=== PATIENT | male | born 1955 | race Caucasian/White ===

== ENCOUNTER 2024-03-30 15:13 | Outpatient (AMB) | payer MEDICARE, SELFPAY ==
--- NOTE | 2024-03-30 15:11 | HO.NEPHOV_ITS ---
Vital Signs 03/30/24 15:13 Height 5 ft 10 in Weight 234 lb BMI 33.6 BP 110/68 Blood Pressure Location Rt brachial Position Sitting Pulse 95 Pulse Source Pulse Oximeter Pulse Oximetry (%) 96 Oxygen Delivery Method Room Air Intake Visit Reasons: CKD/ Conf Supervisory Investigative Specialist Required: No Accompanied by: Spouse Allergies semaglutide [From Ozempic] Allergy (Unknown, Verified 03/30/24 15:16) Nausea and Vomiting Medication List - Last Reconciled 03/30/24 by Morgan Garcia MD aspirin 81 mg PO .Everyother Day clonazepam 0.5 mg PO DAILY PRN insulin glargine (Lantus Solostar U-100 Insulin) 30 units subcut lansoprazole 30 mg PO DAILY lisinopril 20 mg PO DAILY multivitamin 1 tab PO DAILY pioglitazone 30 mg PO DAILY rosuvastatin 40 mg PO DAILY tirzepatide (Mounjaro) 5 mg subcut QWEEK HPI Comments Details: Daniel is a pleasant 68-year-old man referred for CKD. He has had diabetes mellitus for more than 20 years but blood sugar has been well controlled. Until recently he was on metformin which has been discontinued. He has been on Mounjaro for the last 6 months. He has lost about 15 lb. He has been on lisinopril 20 mg a day for last several years. Blood pressure has been well controlled. He denies any hypotensive episodes. He has no urinary symptoms. No polyuria polydipsia no hematuria. No leg edema no shortness of breath no fever no cough. He does not smoke or consume alcohol at present. The goals regularly. Occasionally takes ibuprofen 800 mg for aches. 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 Obesity due to excess calories Hyperlipidemia Hypertension GERD (gastroesophageal reflux disease) Diabetes Family History (Updated 03/30/24 @ 15:16 by ELSA Paula) Mother Hypertension Review of Systems Const Denies fever(s) and Denies weight loss Card Denies chest pain Resp Denies cough and Denies hemoptysis GI Denies abdominal pain, Denies diarrhea and Denies nausea Musc Denies back pain Neuro Denies focal weakness Physical Exam Vital Signs: Last Vital Signs Pulse 95 03/30/24 15:13 BP 110/68 03/30/24 15:13 Pulse Ox 96 03/30/24 15:13 Oxygen Delivery Method Room Air 03/30/24 15:13 BMI result Body Mass Index 33.6 Comfortable Neck supple no JVD. Lungs entry equal no rales. Heart S1-S2 heard no gallop or rub. Abdomen soft nontender. Neuro alert awake oriented. No asterixis. Extremities no edema. Results Reviewed Results Reviewed: 05/09/2023 serum creatinine 1.43 12/08/2023 creatinine 1.43. 02/07/2024 serum creatinine 1.73. Nephrology Results: No Data to Display Assessment & Plan Assessment & Plan (1) CKD (chronic kidney disease): Code(s): N18.9 - Chronic kidney disease, unspecified Category: Medical Plan Anupam has CKD in a setting of longstanding hypertension diabetes mellitus. I suspect he has a component of acute kidney injury due to hypoperfusion. With mounjaro he has lost some weight and probably has hypoperfusion from the use of DANILO inhibitor. Occasional use of ibuprofen could have contributed as well. Urinalysis bland. No significant proteinuria. No evidence of any active glomerular nephritis or interstitial disease. Other less likely possibilities would include obstructive uropathy. Recommendation Decrease lisinopril from 20 mg down to 10 mg a day. Stay on low-sodium diet Increase p.o. fluid intake. Check renal ultrasonogram. Recheck serum creatinine in the next few weeks. Further workup will be based on the outcome of these investigations. Orders: Orders Basic Metabolic Panel 5 Weeks N18.9 - Chronic kidney disease, unspecified Basic Metabolic Panel Today N18.9 - Chronic kidney disease, unspecified US renal BI Today N18.9 - Chronic kidney disease, unspecified Medications: New lisinopril 10 mg PO DAILY 30 tabs 1RF Coding Level of Care Code New Pt Level 4 (67526) Diagnoses CKD (chronic kidney disease) N18.9
[2024-03-30 15:13] VITALS: BP 110/68; PULSE 95; O2SAT 96; BMI 33.6
--- OUTSIDE RECORDS SUMMARY | 2024-03-31 03:01 | XMS_ITS ---
Author Name [facility] Organization Unknown History of Medication Use Medication Directions Dispensed Refills Start Date End Date Stat pioglitazone (ACTOS) 45 MG tablet Take 45 mg by mouth daily. 03/21/2023 active Metformin Hydrochloride 500mg Tablet 11/29/2022 active diazepam (Valium) 2 MG tablet 1-2 q8h prn 03/21/2023 active insulin glargine (LANtus SOLOSTAR) 100 units/mL pen injection Inject under the skin. 03/21/2023 active Continuous Blood Gluc Sensor (FreeStyle Hali 14 Day Sensor) Misc 1 DEVICE BY DOES NOT APPLY ROUTE EVERY 14 (FOURTEEN) DAYS. 03/21/2023 active insulin NPH (HumuLIN N,NovoLIN N) 100 units/mL injection Inject under the skin 2 (two) times a day. 03/21/2023 active meclizine (ANTIVERT) 25 MG tablet Take 25 mg by mouth 3 (three) times a day as needed. 03/21/2023 aborted Ozempic, 1 MG/DOSE, 4 MG/3ML prefilled pen injection INJECT 1 MG UNDER THE SKIN ONCE A WEEK. 03/21/2023 active metFORMIN (GLUCOPHAGE) 1000 MG tablet Take 1,000 mg by mouth 2 (two) times a day with meals. 03/21/2023 active predniSONE (DELTASONE) 20 MG tablet Take 2 tablets (40 mg total) by mouth daily. With food. 03/21/2023 active Lantus SoloStar 100units/mL Pre-Filled Pen Solution for Injection 11/29/2022 active meclizine (ANTIVERT) 25 MG tablet Take 25 mg by mouth 3 (three) times a day as needed. 03/21/2023 aborted Valacyclovir Hydrochloride 1g Tablet 11/29/2022 active clonazePAM (KlonoPIN) 0.5 MG tablet Take 0.5 mg by mouth 2 (two) times a day. 03/21/2023 aborted Rosuvastatin Calcium 40mg Tablet 11/29/2022 active buPROPion (WELLBUTRIN SR) 150 MG 12 hr tablet TAKE 1 TABLET BY MOUTH EVERY MORNING FOR 4 WEEKS THEN INCREASE TO TWICE A DAY 03/21/2023 aborted rosuvastatin (CRESTOR) 20 MG tablet Take 20 mg by mouth daily. 03/21/2023 active Pioglitazone Hydrochloride 30mg Tablet 11/29/2022 active lisinopril (PRINIVIL,ZeSTRIL) 20 MG tablet Take 20 mg by mouth daily. 03/21/2023 active lansoprazole (PREVACID) 30 MG capsule TAKE ONE CAPSULE BY MOUTH EVERY DAY 1/2 HOUR BEFORE MEALS 03/21/2023 active insulin lispro (HumaLOG KWIKPEN) 100 UNIT/ML prefilled pen injection 03/21/2023 active metFORMIN (GLUCOPHAGE-XR) 500 MG 24 hr tablet TAKE 2 TABLETS (1,000 MG TOTAL) BY MOUTH EVERY MORNING WITH BREAKFAST. 03/21/2023 aborted valACYclovir (VALTREX) 1000 MG tablet TAKE 1 TABLET BY MOUTH EVERY DAY 03/21/2023 active Lansoprazole 30mg Delayed-Release Orally Disintegrating Tablet 11/29/2022 act rafa quinapril (ACCUPRIL) 20 MG tablet Take 20 mg by mouth daily. 03/21/2023 active Problems Problem Status Onset Date Problem Type Date of Resolution Source Neuralgia and neuritis active 2022-11-26 EncounterDiagnosisAct ENS_PO DCRCT Tendinitis / enthesopathy RIGHT FOOT, capsulitis, periostitis active 2022-11-26 EncounterDiagnosisAct ENS_PO DCRCT Type 2 diabetes mellitus without complications active 2022-11-26 EncounterDiagnosisAct ENS_P ODCRCT [id number] - Heel pain active 2022-11-[address] ENS_PODCRCT Strain of muscle and tendon of long extensor muscle of toe at ankle and foot level, right foot, initial encounter active 2022-11-26 EncounterDiagnosisAct ENS_PO DCRCT Acute bronchitis, unspecified organism active EncounterDiagnosisAct [facility] Immunizations Vaccine Date Source Lot Number Status Influenza Inactivated/Split Preservative Free IM 02/23/2019 [facility] [id number] completed
== END 2024-03-30 15:51 | disposition home or self-care (01) ==
PROVIDERS: PCP Internal Medicine; Referring Provider Internal Medicine; Visit Provider Internal Medicine Hypertension Specialist
DX: I12.9 Hypertensive chronic kidney disease with stage 1 through stage 4 chronic kidney disease, or unspecified chronic kidney disease (principal); E11.22 Type 2 diabetes mellitus with diabetic chronic kidney disease; N18.9 Chronic kidney disease, unspecified
CPT/HCPCS: 99204

== ENCOUNTER → 2024-03-30 15:13 | Outpatient (BNVA) | payer MEDICARE, SELFPAY | PROVIDERS: PCP Internal Medicine; Referring Provider Internal Medicine; Visit Provider Internal Medicine Hypertension Specialist | DX: E11.22 Type 2 diabetes mellitus with diabetic chronic kidney disease (principal); I12.9 Hypertensive chronic kidney disease with stage 1 through stage 4 chronic kidney disease, or unspecified chronic kidney disease; N18.30 Chronic kidney disease, stage 3 unspecified; Z79.4 Long term (current) use of insulin | CPT/HCPCS: 99202 ==

== ENCOUNTER 2024-05-11 13:47 | Outpatient (AMB) | payer MEDICARE, SELFPAY ==
--- NOTE | 2024-05-11 13:45 | HO.NEPHOV_ITS ---
Vital Signs 05/11/24 13:46 Height 5 ft 10 in Weight 235 lb BMI 33.7 BP 118/76 Blood Pressure Location Lt brachial Position Sitting Pulse 75 Pulse Source Pulse Oximeter Pulse Oximetry (%) 97 Oxygen Delivery Method Room Air Intake Visit Reasons: April follow up/ Conf Software Development Engineer Required: No Accompanied by: Spouse Allergies semaglutide [From Ozempic] Allergy (Unknown, Verified 05/11/24 13:48) Nausea and Vomiting Medication List - Last Reconciled 05/11/24 by Morgan Garcia MD aspirin 81 mg PO .Everyother Day clonazepam 0.5 mg PO DAILY PRN insulin glargine (Lantus Solostar U-100 Insulin) 30 units subcut lansoprazole 30 mg PO DAILY lisinopril 10 mg PO DAILY multivitamin 1 tab PO DAILY pioglitazone 30 mg PO DAILY rosuvastatin 40 mg PO DAILY HPI Comments Details: Daniel is a pleasant 68-year-old man referred for CKD. He has had diabetes mellitus for more than 20 years but blood sugar has been well controlled. Until recently he was on metformin which has been discontinued. He has been on Mounjaro for the last 6 months. He has lost about 15 lb. He has been on lisinopril 20 mg a day for last several years. Blood pressure has been well controlled. He denies any hypotensive episodes. He has no urinary symptoms. No polyuria polydipsia no hematuria. No leg edema no shortness of breath no fever no cough. He does not smoke or consume alcohol at present. The goals regularly. Occasionally takes ibuprofen 800 mg for aches. 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 02/07/2024 serum creatinine 1.73. Nephrology Results: No Data to Display Assessment & Plan Assessment & Plan (1) CKD (chronic kidney disease): Code(s): N18.9 - Chronic kidney disease, unspecified Category: Medical Plan Anupam has CKD in a setting of longstanding hypertension diabetes mellitus. I suspect he has a component of acute kidney injury due to hypoperfusion. With mounjaro he has lost some weight and probably has hypoperfusion from the use of DANILO inhibitor. Occasional use of ibuprofen could have contributed as well. Urinalysis bland. No significant proteinuria. No evidence of any active glomerular nephritis or interstitial disease. No obstructive uropathy. Renal fx improved after lowering Lisinopril BP is excellent Recommendation Keep lisinopril 10 mg a day. Stay on low-sodium diet Increase p.o. fluid intake. Recheck serum creatinine in 6 months s. Orders: Orders Creatinine Urine 6 Months N18.9 - Chronic kidney disease, unspecified Basic Metabolic Panel 6 Months N18.9 - Chronic kidney disease, unspecified Total Protein Urine Random 6 Months N18.9 - Chronic kidney disease, unspecified UA and rflx microscopic 6 Months N18.9 - Chronic kidney disease, unspecified Coding Level of Care Code Est Pt Level 4 (32800) Diagnoses CKD (chronic kidney disease) N18.9
[2024-05-11 13:46] VITALS: BP 118/76; PULSE 75; O2SAT 97; BMI 33.7
--- OUTSIDE RECORDS SUMMARY | 2024-05-11 15:59 | XMS_ITS | Encounter Summary ---
Author Organization [facility] Address [address] [place] [address] Care Team Providers Care Chemistry Intern Name Role Phone Brett Fraser MD Primary Care Provider [phone] Encounter Details Date Type Department Care Team (Late st Contact Info) Description 03/19/2023 10:44 AM EST Hospital Encounter [facility] [address] [place] [id number] Issac Cleveland MD [address] [place] [address] Social History Tobacco Use Types Packs/Day Years Used Date Smoking Tobacco: Former Cigarettes Smokeless Tobacco: Never Sex and Gender Information Value Date Recorded Sex Assigned at Not on file Gender Identity Not on file Sexual Orientation Not on file documented as of this encounter Plan of Treatment Not on file documented as of this encounter Procedures Procedure Name Priority Date/Time Associated Diagnosis Comments XR CHEST 2 VIEWS STAT 03/19/2023 10:5 1 AM EST Acute bronchitis, unspecified organism documented in this encounter Results * XR Chest 2 views (03/19/2023 10:51 AM EST) Anatomical Region Laterality Modality Chest Computed Radiogr aphy 03/19/2023 11:2 6 AM EST Impressions 03/19/2023 11:27 AM EST Clear lungs Narrative 03/19/2023 11:27 AM EST EXAM: XR CHEST 2 VIEWS on 03/19/2023 10:45 AM CLINICAL HISTORY: DANIEL FRAIRE is a 67 years old patient with a submitted history of cough x 10 days, wheezing at night. ADDITIONAL HISTORY: Acute bronchitis, unspecified organism COMPARISONS: None TECHNIQUE: ??2 views of the chest performed. FINDINGS: ?? Normal cardiac size No airspace consolidation No pleural effusions Procedure Note Froilan Burton MD - 03/19/2023 EXAM: XR CHEST 2 VIEWS on 03/19/2023 10:45 AM CLINICAL HISTORY: DANIEL FRAIRE is a 67 years old patient with a submitted history ofcough x 10 days, wheezing at night. ADDITIONAL HISTORY: Acute bronchitis, unspecified organism COMPARISONS: None TECHNIQUE: 2 views of the chest performed. FINDINGS: Normal cardiac size No airspace consolidation No pleural effusions IMPRESSION: Clear lungs Mabedia Wu CLOUD SECURITY ARCHITECT IMG DIAGNOSTIC IMAGI NG ORDERABLES documented in this encounter Visit Diagnoses Not on filedocumented in this encounter Care Teams Chemistry Intern Relationship Specialty Start Date End Date Brett Fraser MD [address] [place] [id number] PCP - General Internal Medicine 02/23/19 documented as of this encounter
--- OUTSIDE RECORDS SUMMARY | 2024-05-11 15:59 | XMS_ITS | Clinical Summary ---
Author Organization [facility] Address [address] [place] [address] Care Team Providers Care Collar Feller Name Role Phone Brett Fraser MD Primary Care Provider [phone] Medical History Medical History Date Comments Diabetes mellitus ([facility]) DX:D iabetes mellitus ([facility]) Family History Medical History Relation Name Comments Dementia Father Neurofibromatosis Father Migraines Mother Relation Name Status Comments Father Mother Social History Tobacco Use Types Packs/Day Years Used Date Smoking Tobacco: Light Smoker Cigarettes Smokeless Tobacco: Never Alcohol Use Standard Drinks/Week Comments No 0 (1 standard drink = 0.6 oz pur e alcohol) Sex and Gender Information Value Date Recorded Sex Assigned at Not on file Gender Identity Not on file Sexual Orientation Not on file Obstetrics History Last Filed Vital Signs Vital Sign Reading Time Taken Comments Blood Pressure 128/78 10/16/2023 2:01 PM EDT Pulse 60 10/16/2023 2:01 PM EDT Temperature - - Respiratory Rate - - Oxygen Saturation - - Inhaled Oxygen Concentration - - Weight 110 kg (242 lb) 10/16/2023 2:01 PM EDT Height 177.8 cm (5' 10 ) 10/16/2023 2:01 PM EDT Body Mass Index 34.72 10/16/2023 2:01 PM EDT Plan of Treatment Health Maintenance Due Date Last Done Comments Diabetes: Annual GFR (Glomerular Filtration Rate) 1957 Pneumococcal Vaccine: 65+ Years (1 of 2 - PCV) 11/17/1963 Diabetes: Annual Foot Exam 11/17/1967 Diabetes: Annual Retina Eye Exam 11/17/1967 RSV Immunization Patients 60+ Years Old (1 - Risk 60-74 years 1-dose series) 2017 Abdominal Aortic Aneurysm (AAA) Screen 09/04/2020 Cholesterol Screening (Lipid Panel) 09/04/2020 Colorectal Cancer Screening: Colonoscopy 09/04/2020 Depression Screening 09/04/2020 Hepatitis C Screening 09/04/2020 Social Influencers of Health Screening 09/04/2020 Zoster Vaccines (2 of 2) 10/24/2020 08/29/2020 Diabetes: Annual Urine Albumin-Creatinine Ratio (uACR) 04/06/2022 Diabetes: Blood Sugar Control Test (HGBA1C) 04/06/2022 Falls Risk Assessment 2022 DTaP,Tdap,and Td Vaccines (2 - Td or Tdap) 09/13/2023 09/12/2013 COVID-19 Vaccine ( - season) 2023 03/20/2021, 07/24/2020, 07/03/2020 Influenza Vaccine (#1) 2023 , 01/30/2021, 02/23/2019, Additional history exists HIB Vaccines Aged Out No longer eligi ble based on patient's age to complete this topic HPV Vaccines Aged Out No longer eligi ble based on patient's age to complete this topic Hepatitis A Vaccines Aged Out No long er eligible based on patient's age to complete this topic Hepatitis B Vaccines Aged Out No long er eligible based on patient's age to complete this topic IPV Vaccines Aged Out No longer eligi ble based on patient's age to complete this topic MMR Vaccines Aged Out No longer eligi ble based on patient's age to complete this topic Meningococcal ACWY Vaccine Aged Out N o longer eligible based on patient's age to complete this topic RSV Immunization Patients Under 20 months Aged Out No longer eligible based on patient's age to complete this topic Varicella Vaccines Aged Out No longer eligible based on patient's age to complete this topic Care Teams Collar Feller Relationship Specialty Start Date End Date Brett Fraser MD PCP - General Family Medicine 09/19/14
--- OUTSIDE RECORDS SUMMARY | 2024-05-11 15:59 | XMS_ITS | Clinical Summary ---
Author Organization [facility] Address [address] [place] [address] Care Team Providers Care Injection Machine Operator Name Role Phone Brett Fraser MD Primary Care Provider [phone] Shayne Horne MD Unavailable Allergies No known active allergies Medications Medication Sig Dispensed Refills Start Date End Date Status insulin glargine (LANtus SOLOSTAR) 100 units/mL pen injection Inject under the skin. Active insulin NPH (HumuLIN N,NovoLIN N) 100 units/mL injection Inject under the skin 2 (two) times a day. Active quinapril (ACCUPRIL) 20 MG tablet Take 20 mg by mouth daily. Active rosuvastatin (CRESTOR) 20 MG tablet Take 20 mg by mouth daily. Active metFORMIN (GLUCOPHAGE) 1000 MG tablet Take 1,000 mg by mouth 2 (two) times a day with meals. Active pioglitazone (ACTOS) 45 MG tablet Take 45 mg by mouth daily. Active Continuous Blood Gluc Mat Inspector (FreeStyle Hali 14 Day [place]) Device USE DIRECTED 09/19/2019 Active Continuous Blood Gluc Sensor (FreeStyle Hali 14 Day Sensor) Mis 1 DEVICE BY DOES NOT APPLY ROUTE EVERY 14 (FOURTEEN) DAYS. 12/29/2019 Active diazepam (Valium) 2 MG tablet 1-2 q8h prn 05/21/2019 Active insulin lispro (HumaLOG KWIKPEN) 100 UNIT/ML prefilled pen injection 01/24/2020 Active lansoprazole (PREVACID) 30 MG capsule TAKE ONE CAPSULE BY MOUTH EVERY DAY 1/2 HOUR BEFORE MEALS 01/10/2020 Active valACYclovir (VALTREX) 1000 MG tablet TAKE 1 TABLET BY MOUTH EVERY DAY 11/11/2019 Active lisinopril (PRINIVIL,ZeSTRIL) 20 MG tablet Take 20 mg by mouth daily. 03/03/2023 Active Ozempic, 1 MG/DOSE, 4 MG/3ML prefilled pen injection INJECT 1 MG UNDER THE SKIN ONCE A WEEK. 02/23/2023 Active predniSONE (DELTASONE) 20 MG tabletIndications:Acu te bronchitis, unspecified organism Take 2 tablets (40 mg total) by mouth daily. With food. 10 tablet 03/19/2023 Active Active Problems No known active problems Immunizations Name Administration Dates Next Due Influenza Inactivated/Split Preservative Free IM 02/23/2019 Social History Tobacco Use Types Packs/Day Years Used Date Smoking Tobacco: Former Cigarettes Smokeless Tobacco: Never Sex and Gender Information Value Date Recorded Sex Assigned at Not on file Gender Identity Not on file Sexual Orientation Not on file Last Filed Vital Signs Vital Sign Reading Time Taken Comments Blood Pressure 139/77 03/19/2023 10:06 AM EST Pulse 84 03/19/2023 10:06 AM EST Temperature 36.6 ??C (97.9 ??F) 03/19/2023 10:[address] Respiratory Rate - - Oxygen Saturation 97% 03/19/2023 10:06 AM EST Inhaled Oxygen Concentration - - Weight 106 kg (233 lb) 03/19/2023 10:06 AM EST Height 177.8 cm (5' 10 ) 03/19/2023 10:06 AM EST Body Mass Index 33.43 03/19/2023 10:06 AM EST Plan of Treatment Health Maintenance Due Date Last Done Comments Hepatitis C Virus Screening 1955 DTaP/Tdap/Td Vaccines (1 - Tdap) 1976 Colonoscopy 2002 Pneumococcal Vaccines 50+ (1 of 1 - PCV) 11/17/2007 Zoster (Shingles) Vaccine (1 of 2) 11/17/2007 RSV Vaccine 60 years and older and Patients (1 - Risk 60-74 years 1-dose series) 2017 Influenza Vaccine 11/19/2023 12/24/2022, , 03/25/2022, Additional history exists COVID-19 Vaccine ( season) 2023 03/25/2022, 03/20/2021, 07/24/2020, Additional history exists Hemoglobin A1C Discontinued 12/01/2018, 07/23/2018 Hepatitis B Vaccines Aged Out No long er eligible based on patient's age to complete this topic Care Teams Injection Machine Operator Relationship Specialty Start Date End Date Brett Fraser MD [address] [place] [phone] PCP - General Internal Medicine 02/23/19 Shayne Horne MD [address] [place] [address] PCP - [employer] Medicare Attributed 06/19/23
--- OUTSIDE RECORDS SUMMARY | 2024-05-11 15:59 | XMS_ITS | Clinical Summary ---
Author Organization [facility] Address [address] [place] [address] Care Team Providers Care Instrument Calibrator Name Role Phone Brett Fraser MD Primary Care Provider Allergies Active Allergy Reactions Criticality Noted Date Comments No Active Allergies 12/22/2014 Medications Medication Sig Dispensed Refills Start Date End Date Status Multiple Vitamins-Minerals (ONE-A-DAY MENS 50+ ADVANTAGE PO) Take by mouth. 0 Act rafa Continuous Blood Gluc Hr Director (NuvoMed HALI 14 DAY READER) SAMMY USE DIRECTED 1 Device 0 09/19/2019 Active buPROPion (WELLBUTRIN SR) 150 MG 12 hr tablet TAKE 1 TABLET BY MOUTH EVERY MORNING FOR 4 WEEKS THEN INCREASE TO TWICE A DAY 60 tablet 2 02/13/2020 Active Blood Glucose Monitoring Suppl (Accu-Chek Gregoria Plus) w/Device KIT Use the device before every meal 1 kit 0 06/18/2021 Active glucose blood (Accu-Chek Gregoria Plus) test strip Use as instructed 100 each 12 06/18/2021 Active Insulin Lispro, 1 Unit Dial, (HumaLOG KWIKPEN) 100 UNIT/ML SOPN Use 1 unit for every 5 g of carbohydrate with every meal and snack 30 mL 3 06/18/2021 Active meloxicam (MOBIC) 15 MG tablet Take 1 tablet (15 mg total) by mouth daily. with food 0 12/30/2021 Active meclizine (ANTIVERT) 25 MG tablet Take 1 tablet (25 mg total) by mouth 3 (three) times a day as needed. 0 05/21/2019 Active baclofen (LIORESAL) 10 MG tablet Take 1 tablet (10 mg total) by mouth 3 (three) times a day. 0 12/30/2021 Active Continuous Blood Gluc Sensor (FreeStyle Hali 14 Day Sensor) [facility] [place] [facility] APPLY 1 DEVICE TOPICALLY EVERY 14 (FOURTEEN) DAYS. 6 each 3 10/24/2022 Active Lantus SoloStar 100 UNIT/ML injection INJECT 60 UNITS UNDER THE SKIN DAILY 15 mL 11 02/27/2023 Active BD Pen Needle Rosi 2nd Gen 32G X 4 MM MIS USE TO INJECT INSULINS 3 TIMES A DAY 100 each 8 07/22/2023 Active tirzepatide (Mounjaro) 2.5 MG/0.5ML Inject 0.5 mL (2.5 mg total) under the skin. 0 Active metFORMIN (GLUCOPHAGE-XR) ER 24 hr tablet 500 mg Take 2 tablets (1,000 mg total) by mouth every morning with breakfast. 180 tablet 1 11/02/2023 10/27/2024 Active rosuvastatin (CRESTOR) tablet 40 mg TAKE 1 TABLET BY MOUTH EVERY NIGHT AT BEDTIME 90 tablet 0 12/09/2023 Active Ozempic, 1 MG/DOSE, 4 MG/3ML SOPN INJECT 1 MG UNDER THE SKIN ONCE A WEEK. 6 mL 11 12/23/2023 Active lansoprazole (PREVACID) 30 MG capsule 1 day 30 capsule 5 12/25/2023 Active lisinopril (PRINIVIL,ZESTRIL ) tablet 20 mg TAKE 1 TABLET BY MOUTH EVERY DAY 90 tablet 1 01/08/2024 Active pioglitazone (ACTOS) tablet 30 mg TAKE 1 TABLET BY MOUTH EVERY DAY 30 tablet 0 01/16/2024 Active valACYclovir (VALTREX) 1000 MG tablet TAKE 1 TABLET BY MOUTH EVERY DAY 20 tablet 0 01/22/2024 Active clonazePAM (KlonoPIN) 0.5 MG tablet TAKE 1 TABLET BY MOUTH TWICE A DAY 60 tablet 0 02/03/2024 Active Active Problems Problem Noted Date Diagnosed Date Hyperlipidemia 09/09/2022 Overview: Low HDL Depression 09/09/2022 Anxiety 09/09/2022 Colon polyp 09/09/2022 Overview: 2018 Type II diabetes mellitus, uncontrolled 11/16/19 16 Erectile disorder due to medical condition in ma le patient 2015 Cervical spondylosis without myelopathy 11/01/19 16 Prolapsed cervical disc 11/01/2015 Cervical spondylosis with myelopathy 08/14/2015 Diabetes mellitus without complication 5 Acid reflux 12/22/2014 Tubular adenoma of colon 12/22/2014 Type II diabetes mellitus with manifestations, u ncontrolled 12/22/2014 Immunizations Name Administration Dates Next Due Covid-19 (Moderna 12+) 100mcg/0.5mL dosage 03/20 Covid-19 (Pfizer) Dilution Required 07/24/2020,0 07/03/2020 Influenza Quad (Afluria/Fluz one) 0.5mL >=6mon Vial (SD-IIV4) 12/24/2022,01/30/2021,01/11/2018 Influenza Trivalent (Fluzone /Afluria) 5.0mL Multi-dose Vial 02/23/2019 Shingrix Vaccine (Zoster Recombinant) 08/29/2020 Tdap 09/12/2013 Family History Medical History Relation Name Comments Dementia Father Neurofibromatosis Father Migraines Mother Relation Name Status Comments Father Mother Social History Tobacco Use Types Packs/Day Years Used Date Smoking Tobacco: Light Smoker Cigarettes 1 Smokeless Tobacco: Never Alcohol Use Standard Drinks/Week Comments No 0 (1 standard drink = 0.6 oz pur e alcohol) Sex and Gender Information Value Date Recorded Sex Assigned at Not on file Gender Identity Not on file Sexual Orientation Not on file Job Start Date Occupation Industry Not on file Not on file Not on file Last Filed Vital Signs Vital Sign Reading Time Taken Comments Blood Pressure 128/78 10/16/2023 2:01 PM EDT Pulse 60 10/16/2023 2:01 PM EDT Temperature 36.4 ??C (97.6 ??F) 10/16/2023 2:01 PM ED T Respiratory Rate 12 08/14/2015 10:09 AM EDT Oxygen Saturation 98% 10/16/2023 2:01 PM EDT Inhaled Oxygen Concentration - - Weight 109.8 kg (242 lb) 10/16/2023 2:01 PM EDT Height 177.8 cm (5' 10 ) 10/16/2023 2:01 PM EDT Body Mass Index 34.72 10/16/2023 2:01 PM EDT Plan of Treatment Health Maintenance Due Date Last Done Comments Hepatitis C Screening 1955 Pneumococcal Vaccine (1 of 2 - PCV) 11/17/1963 BMI Counseling 11/17/1975 Tobacco Cessation Counseling 11/17/1975 Colon Cancer Screening (Colonoscopy) 2002 Diabetes: Microalbumin Test 09/24/2016 09/25/2015 RSV Adult > 60+ Yrs or (1 - Risk 60-74 years 1-dose series) 2017 Diabetes: Eye Exam (No Retinopathy) 02/09/2018 02/10/2016, 05/18/2014 Shingrix-Zoster Vaccine (2 of 2) 10/24/2020 08/29/2020 Hemoglobin A1C Due 12/19/2021 06/18/2021, 1 , 08/07/2020, Additional history exists Diabetes: Foot Exam 06/18/2022 06/18/2021, 02/12/2021, 08/07/2020, Additional history exists Abdominal Aortic Aneurysm (AAA) Screening 2022 DTap / Tdap / Td (2 - Td or Tdap) 09/13/2023 09/12/2013 COVID-19 Vaccine ( season) 2023 03/20/2021, 07/24/2020, 07/03/2020 Influenza Vaccine (#1) 2023 , 01/30/2021, 02/23/2019, Additional history exists Depression Screening 10/15/2024 10/16/2023 Fall Risk Assessment 10/15/2024 10/16/2023 Preventative Health Evaluation 10/15/2024 10/16/2023, 10/16/2023, 08/29/2020 Hepatitis B Vaccines Aged Out No long er eligible based on patient's age to complete this topic RSV Ped < 20 months Aged Out No longe r eligible based on patient's age to complete this topic Advance Directives For more information, please contact: [phone] Documents on File Type Date Recorded Patient Bank Examiner Expl anation Power of Utility Worker Film Processing 08/31/2015 3:22 PM Advance Directive and Living Will 08/31/2015 3:22 PM Care Teams Instrument Calibrator Relationship Specialty Start Date End Date Brett Fraser MD PCP - General Family Medicine 09/19/14
== END 2024-05-11 14:01 | disposition home or self-care (01) ==
PROVIDERS: PCP Internal Medicine; Visit Provider Internal Medicine Hypertension Specialist
DX: N18.9 Chronic kidney disease, unspecified (principal)
CPT/HCPCS: 99214

== ENCOUNTER → 2024-05-11 13:47 | Outpatient (BNVA) | payer MEDICARE, SELFPAY | PROVIDERS: PCP Internal Medicine; Visit Provider Internal Medicine Hypertension Specialist | DX: E11.22 Type 2 diabetes mellitus with diabetic chronic kidney disease (principal); N18.9 Chronic kidney disease, unspecified | CPT/HCPCS: 99212 ==

== ENCOUNTER 2024-11-30 12:59 | Outpatient (AMB) | payer MEDICARE, SELFPAY ==
--- NOTE | 2024-11-30 13:00 | HO.NEPHOV ---
Vital Signs 11/30/24 13:02 Height 5 ft 10 in Intake Visit Reasons: 6mon follow-up w/labs-Conf Roll Wrapper Required: No Accompanied by: Self / Same As Patient Allergies semaglutide (From Ozempic) Allergy (Unknown, Verified 05/11/24 13:48) Nausea and Vomiting HPI Comments Details: Daniel is a pleasant 68-year-old man referred for CKD. He has had diabetes mellitus for more than 20 years but blood sugar has been well controlled. Until recently he was on metformin which has been discontinued. He has been on Mounjaro for the last 6 months. He has lost about 15 lb. He has been on lisinopril 20 mg a day for last several years. Blood pressure has been well controlled. He denies any hypotensive episodes. He has no urinary symptoms. No polyuria polydipsia no hematuria. No leg edema no shortness of breath no fever no cough. He does not smoke or consume alcohol at present. The goals regularly. Occasionally takes ibuprofen 800 mg for aches. He does not taken a regular basis 05/11/24 After lowering Lisinopril to 10mg, Cr is better Had vomiting with Maunjaro and he stopped it Now on Rebelsus 11/30/2024. Currently not on Mounjaro. Blood sugar has been well controlled. Today he has no specific complaints. This was a tele visit. [facility] Medical History (Updated 03/30/24 @ 15:37 by Morgan Garcia MD) BMI 33.0-33.9,adult Mixed hyperlipidemia Tennis elbow Essential hypertension Adult-onset obesity Chronic kidney disease, stage 3 unspecified Herpesviral infection, unspecified Type 2 diabetes mellitus with other specified complication detention (current) use of insulin Obesity due to excess calories Hyperlipidemia Hypertension GERD (gastroesophageal reflux disease) Diabetes Family History Mother Hypertension Telehealth Telehealth Telehealth Platform: Telephone Location of provider rendering services: practice address Location of patient: address on file Patient Identification confirmed using: Name, : Yes Telehealth method: voice only Patient verbally consented to treatment: Yes Patient verbally consented to billing insurance company: Yes Patient informed of any privacy concerns related to visit: Yes Results Reviewed Results Reviewed: cr 1.9 UPCR Assessment & Plan Assessment & Plan (1) CKD (chronic kidney disease): Code(s): N18.9 - Chronic kidney disease, unspecified Category: Medical Plan Daniel has CKD in a setting of longstanding hypertension diabetes mellitus. I suspect he has a component of acute kidney injury due to hypoperfusion. With mounjaro he has lost some weight and probably has hypoperfusion from the use of DANILO inhibitor. Occasional use of ibuprofen could have contributed as well. Urinalysis bland. No significant proteinuria. No evidence of any active glomerular nephritis or interstitial disease. No obstructive uropathy. Renal fx improved after lowering Lisinopril BP is excellent 11/30/2024. CKD 3B. There has been a gradual increase serum creatinine due to natural progression. Goal is to slow the progression of kidney disease. Continue to optimize blood sugar and blood pressure and avoid hypotension. Continue to avoid nephrotoxic agents including NSAIDs. Encouraged him to increase p.o. fluid intake. No changes were made today Orders: Orders Basic Metabolic Panel 4 Months N18.9 - Chronic kidney disease, unspecified Coding Level of Care Code Tele Est Pt Level 2 (34776) Diagnoses CKD (chronic kidney disease) N18.9
--- OUTSIDE RECORDS SUMMARY | 2024-11-30 13:31 | XMS_ITS | Clinical Summary ---
Author Organization [facility] Address [address] [place] [address] Care Team Providers Care Sr. Director Product Management Name Role Phone Brett Fraser MD Primary Care Provider [phone] Shayne Horne MD Unavailable [phone] Allergies No known active allergies Medications insulin glargine (LANtus SOLOSTAR) 100 units/mL pen [...] by mouth daily. Active Continuous Blood Gluc Billing Administrator (FreeStyle Hali 14 Day Halsey) Device USE DIRECTED 0 Active Continuous Blood Gluc Sensor (FreeStyle Hali 14 Day Sensor) Mis 1 DEVICE BY DOES NOT APPLY ROUTE EVERY 14 (FOURTEEN) DAYS. 0 Active diazepam (Valium) 2 MG tablet 1-2 q8h prn 0 Active insulin lispro (HumaLOG KWIKPEN) 100 UNIT/ML prefilled pen injection 0 Active lansoprazole (PREVACID) 30 MG capsule TAKE ONE CAPSULE BY MOUTH EVERY DAY 1/2 HOUR BEFORE MEALS 0 Active valACYclovir (VALTREX) 1000 MG tablet TAKE 1 TABLET BY MOUTH EVERY DAY 0 Active lisinopril (PRINIVIL,ZeSTRI L) 20 MG tablet Take 20 mg by mouth daily. 3 Active Ozempic, 1 MG/DOSE, 4 MG/3ML prefilled pen injection INJECT 1 MG UNDER THE SKIN ONCE A WEEK. 3 Active predniSONE (DELTASONE) 20 MG tabletIndication s:Acute bronchitis, unspecified organism Take 2 tablets (40 mg total) by mouth daily. With food. 10 tablet 3 Active Active Problems No known active problems Immunizations Immunization Administration Dates Next Due Influenza Inactivated/Split Preservative Free IM 02/23/2019 Social History Tobacco Use Types Packs/Day Years Used Date Smoking Tobacco: Former Cigarettes Smokeless Tobacco: Never Sex and Gender Information Value Date Recorded Sex Assigned at Not on file Legal Sex Male 9:25 AM EST Gender Identity Not on file Sexual Orientation Not on file Last Filed Vital Signs Vital Sign Reading Time Taken Comments Blood Pressure 139/77 03/19/2023 10:06 AM EST Pulse 84 03/19/2023 10:06 AM EST Temperature 36.6 C (97.9 F) 03/19/2023 10:06 AM EST Respiratory Rate - - Oxygen Saturation 97% [...] - Risk 60-74 years 1-dose series) 2017 COVID-19 Vaccine ( season) 2023 03/25/2022, 03/20/2021, 07/24/2020, Additional history exists Influenza Vaccine 11/18/2024 12/24/2022, , 03/25/2022, Additional history exists Hemoglobin A1C Discontinued 12/01/2018, 07/23/2018 Hepatitis B Vaccines Aged Out No long er eligible based on patient's age to complete this topic Insurance [facility] - O MEDICARE PART A & B [facility] INDIVIDUAL EXCHANGE HMO Care Teams Sr. Director Product Management Relationship Specialty Start Date End Date Brett Fraser MD [address] [place], [place] [address] PCP - General Internal Medicine 02/23/19 Shayne Horne MD [address] [place] [address] PCP - [employer] Medicare Attributed 06/19/23
--- OUTSIDE RECORDS SUMMARY | 2024-11-30 13:31 | XMS_ITS | Clinical Summary ---
Author Organization [facility] Address [address] [place] [address] Care Team Providers Care Director Of Radiology Name Role Phone Brett Fraser MD Primary Care Provider [phone] Medical History Medical History Date Comments Diabetes mellitus (CMS/HCC V24, CMS/HCC V28) DX:Diabetes mellitus ([facility]) Family History Medical History Relation [...] at Not on file Legal Sex Male 7:08 AM EDT Gender Identity Not on file Sexual Orientation [...] Diabetes: Annual GFR (Glomerular Filtration Rate) 1957 Diabetes: Annual Foot Exam 11/17/1967 Diabetes: Annual Retina Eye Exam 11/17/1967 Pneumococcal Vaccine: 50+ Years (1 of 2 - PCV) 1976 RSV Immunization Adult Patients (1 - Risk 60-74 years 1-dose series) 2017 Abdominal Aortic Aneurysm (AAA) Screen 09/04/2020 Cholesterol Screening (Lipid Panel) 09/04/2020 Colorectal Cancer Screening: Colonoscopy 09/04/2020 Hepatitis C Screening 09/04/2020 Social Influencers of Health Screening 09/04/2020 Zoster Vaccines (2 of 2) 10/24/2020 08/29/2020 Diabetes: Annual Urine Albumin-Creatinine Ratio (uACR) 04/06/2022 Diabetes: Blood Sugar Control Test (HGBA1C) 04/06/2022 Falls Risk Assessment 2022 DTaP,Tdap,and Td Vaccines (2 - Td or Tdap) 09/13/2023 09/12/2013 COVID-19 Vaccine (4 - season) 2023 03/20/2021, 07/24/2020, 07/03/2020 Depression Screening 04/20/2024 Influenza Vaccine (#1) 2024 , 01/30/2021, 02/23/2019, Additional history exists HIB [...] patient's age to complete this topic Meningococcal B Vaccine Aged Out No l onger eligible based on patient's age to complete this topic RSV Immunization Patients Under 20 months Aged Out No longer eligible based on patient's age to complete this topic Varicella Vaccines Aged Out No longer eligible based on patient's age to complete this topic Care Teams Director Of Radiology Relationship Specialty Start Date End Date Brett Fraser MD PCP - General Family Medicine 09/19/14
--- OUTSIDE RECORDS SUMMARY | 2024-11-30 13:31 | XMS_ITS | Clinical Summary ---
Author Organization [facility] Address [address] [place] [address] Care Team Providers Care Preventive Medicine Officer Name Role Phone Brett Fraser MD Primary Care Provider Allergies Active Allergy Reactions Criticality Noted Date Comments No Active Allergies 12/22/2014 Medications Medication Sig Dispensed Refills Start Date End Date Status Multiple Vitamins-Minerals (ONE-A-DAY MENS 50+ ADVANTAGE PO) Take by mouth. 0 Act rafa Continuous Blood Gluc Preschool Assistant Director (Jinni HALI 14 DAY READER) SAMMY USE DIRECTED [...] Gluc Sensor (FreeStyle Hali 14 Day Sensor) MIS APPLY 1 DEVICE TOPICALLY EVERY 14 (FOURTEEN) DAYS. 6 each 3 10/24/2022 Active Lantus SoloStar 100 UNIT/ML injection INJECT 60 UNITS UNDER THE SKIN DAILY 15 mL 11 02/27/2023 Active BD Pen Needle Rosi 2nd Gen 32G X 4 MM MISC USE TO INJECT INSULINS 3 TIMES A DAY 100 each 8 07/22/2023 Active tirzepatide (Mounjaro) 2.5 MG/0.5ML Inject 0.5 mL (2.5 mg total) under the skin. 0 Active rosuvastatin (CRESTOR) tablet 40 mg TAKE 1 TABLET BY MOUTH EVERY NIGHT AT BEDTIME 90 tablet 0 12/09/2023 Active Ozempic, 1 MG/DOSE, 4 MG/3ML SOPN INJECT 1 MG UNDER THE SKIN ONCE A WEEK. 6 mL 11 12/23/2023 Active lansoprazole (PREVACID) 30 MG capsule 1 day 30 capsule 5 12/25/2023 Active lisinopril (PRINIVIL,ZESTRIL) tablet 20 mg TAKE 1 TABLET BY [...] 60 10/16/2023 2:01 PM EDT Temperature 36.4 C (97.6 F) 10/16/2023 2:01 PM EDT Respiratory Rate 12 08/14/2015 10:09 AM EDT [...] Vaccine ( season) 2023 03/20/2021, 07/24/2020, 07/03/2020 Depression Screening 10/15/2024 10/16/2023 Fall Risk Assessment 10/15/2024 10/16/2023 Preventative Health Evaluation 10/15/2024 10/16/2023, 10/16/2023, 08/29/2020 Influenza Vaccine (#1) 2024 , 01/30/2021, 02/23/2019, Additional history exists Hepatitis B Vaccines Aged Out No long er eligible based on patient's age to complete this topic RSV Ped < 20 months Aged Out No longe r eligible based on patient's age to complete this topic Advance Directives For more information, please contact: [phone] Documents on File Type Date Recorded Patient Life Sciences Director Expl anation Power of Director Of Maintenance 08/31/2015 3:22 PM Advance Directive and Living Will 08/31/2015 3:22 PM Care Teams Preventive Medicine Officer Relationship Specialty Start Date End Date Brett Fraser MD PCP - General Family Medicine 09/19/14
== END 2024-11-30 13:43 | disposition home or self-care (01) ==
LOC: HO.HKAE 12:59
PROVIDERS: PCP Internal Medicine; Visit Provider Internal Medicine Hypertension Specialist
DX: N18.9 Chronic kidney disease, unspecified (principal)
CPT/HCPCS: 99212